=== PATIENT | female | born 1980 | race Caucasian/White ===

== ENCOUNTER 2016-07-24 16:48 | Emergency (ER) | payer MEDICAID ==
--- NOTE | 2016-07-26 19:25 | ER ---
ADMIT: 07/24/2016 RM/LOC: ER [facility] MR#: [id number] [id number] [place], [place] [id number] [facility] [address] [place] [address] Emergency Room Report SEX: F AGE: 36 : 1980 DATE: 07/24/2016 ADDENDUM: CHIEF COMPLAINT: Right-sided chest pain. HISTORY OF PRESENT ILLNESS: This is a 36-year-old female, who was sitting waiting for her child to come out of school. She said it was sharp pain, also hit her chest, made her very anxious immediately. She felt numbness and tingling into her face and her arms and legs. She was worried about enough that she came to the ER. When she actually gets here, her pain is actually improved quite a bit. She just has still the tingling in her face and her hands. Asked her about family history. Her grandfather had an MD, but older when he was in the 60s or 70s. There are no blood clotting disorders in the family. She denies being a smoker, denies any hormonal treatment, denies any shortness of breath, denies any recent travels or recent surgeries. We discussed PE risks, really she is very low risk for this. She is not hypoxic, she is not short of breath, and again, her pain is improved here at this time. I told her I think she is okay to go home after normal chest x-ray and EKG. I did highly suggest that she be seen by her doctor tomorrow. She is to return to the ER if she develops a chest pain again or any shortness of breath. CLINICAL IMPRESSION: Atypical right-sided chest wall pain. DIANN Weir / Emiliano Mahoney MD / charles JOB #: [id number] CC: Emiliano Mahoney MD, Attending Physician Quincy Singh MD, Family Physician
== END 2016-07-24 18:25 | disposition home or self-care (01) ==
LOC: ER 16:48
DX: R07.89 Other chest pain (principal)